=== PATIENT | male | born 1975 | race Caucasian/White ===

== ENCOUNTER 2021-10-26 22:20 | Observation (INO) ==
[2021-10-26 23:03] LABS: Basophils # (auto) 0.01 K/uL (0-0.2); Basophils % (auto) 0.1 %; Eosinophils # (auto) 0.11 K/uL (0-0.5); Eosinophils % (auto) 0.8 %; Hematocrit (blood only) 43.3 % (42-52); Hemoglobin 15.3 g/dL (14.0-18.0); Immature Granulocytes # (auto) 0.02 K/uL (0.00-0.02); Immature Granulocytes % (auto) 0.1 %; Lymphocytes # (auto) 1.88 K/uL (1.2-3.4); Lymphocytes % (auto) 13.9 %; Mean Corpuscular Hemoglobin 30.2 pg (25-34); Mean Corpuscular Hgb Conc 35.3 g/dL (32-36); Mean Corpuscular Volume 85.6 fL (80-100); Mean Platelet Volume 10.6 fL (7.4-10.4); Monocytes # (auto) 0.92 K/uL (0.11-0.59); Monocytes % (auto) 6.8 %; Neutrophils % (auto) 78.3 %; Platelet Count 220 K/uL (130-400); RDW Coefficient of Variation 13.7 % (11.5-14.5); RDW Standard Deviation 42.5 fL (36.4-46.3); Red Blood Count 5.06 M/uL (4.7-6.1); White Blood Count 13.54 K/uL (4.8-10.8)
[2021-10-26 23:24] LABS: Albumin Globulin Ratio 1.3 (0.9-2); Albumin Level 4.1 gm/dl (3.4-5.0); BUN Creatinine Ratio 10.4 (10-20); Bilirubin,Total 0.7 mg/dl (0.2-1.0); Calcium 9.3 mg/dl (8.5-10.1); Creatinine Clr Calc Pharmacy 103.8 ml/min; Est GFR (African American) 97.1 ml/min; Est GFR (Non-African American) 83.8 ml/min; Globulin 3.1 gm/dl (2.5-4.0); Potassium 3.9 mmol/L (3.5-5.1); Total Protein 7.2 gm/dl (6.0-8.3)
[2021-10-26] MEDS ORDERED: SODIUM CHLORIDE 0.9% 1000ML 1,000 ML IV STA ×2 (23:46)
[2021-10-26] MEDS ORDERED: ONDANSETRON INJ 2 MG/ML 2 ML VIAL IV STA (23:46)
[2021-10-26] MEDS ORDERED: HYDROmorphone INJ 0.5 MG/0.5 ML SYR IV STA (23:46)
[2021-10-26] MEDS ORDERED: PIPERACILLIN/TAZOBACTAM 4.5 GM/120 ML BAG IV ONE (23:48)
[2021-10-26] MEDS ORDERED: PIPERACILL/TAZOBAC CONSULT ACTIVE PRN (23:48)
[2021-10-27] MEDS ORDERED: OPTIRAY 320 100ml IV ONE (00:24)
--- NOTE | 2021-10-27 02:00 | Emergency Department Note ---
ED Provider Note CHIEF COMPLAINT: Lower abdominal pain, diverticulitis HISTORY OF PRESENT ILLNESS: This 46-year-old male patient presents to the emergency department complaints of left lower quadrant to suprapubic abdominal discomfort. The patient states he was diagnosed clinically with diverticulitis by his PCP yesterday. He started Cipro and Flagyl just today. Patient began having symptoms 4 days ago. He does have a history of diverticulitis. He stat es he has had a colonoscopy by [facility] in the past. Patient states it has become difficult to walk without significant discomfort. He denies any high fevers, vomiting or blood in the stools. He states he was constipated today and needed to give himself an enema. He does not feel that he has emptied completely yet. REVIEW OF SYSTEMS: A review of systems was performed with positives and p ertinent negatives listed in the history of present illness. 10 systems were reviewed and are otherwise negative. ALLERGIES: see below MEDICATIONS: see below PMH: see below SOCIAL HISTORY: see below DDx: Appendicitis, testicular torsion, infections, diverticulitis, UTI, obstruction, mesenteric ischemia, aortic pathology, inflammatory bowel disease, renal colic, PUD, pancreatitis, biliary pathology, hernia, volvulus, constipation, as well as other pathologies. PHYSICAL EXAM: Vital signs reviewed. General: Well-appearing 46 yo male, in no significant distress. HEENT: No scleral icterus, PERRLA, neck supple. Atraumatic. Cardiovascular: Regular rate and rhythm, no extra sounds. Pulmonary: Clear to auscultation bilaterally, normal work of breathing. Abdomen: Soft, tender to palpation of LLQ and suprapubic region, positive guarding, nondistended, positive bowel sounds. Musculoskeletal: Atraumatic, no peripheral edema. Neurologic: Patient awake alert and oriented x 3 Skin: Warm, dry, no rash EMERGENCY DEPARTMENT COURSE/MDM: Patient was evaluated and appeared to be in no significant distress. IV access was obtained and laboratory work was drawn. Patient was placed on the desk monitor and noted to be in a normal sinus rhythm. Patient was hydrated with normal saline solution. He was medicated with IV Dilaudid and Zofran. Patient was given IV Zosyn 4.5 g due to the peritoneal signs. CT imaging reveals gas is a larger diverticulum with surrounding pericolonic fat stranding however no pneumoperitoneum or abscess. Patient does have a leukocytosis of 13.5. Patient's case was discussed with hospitalist service for admission and further management. Patient and his family were made aware of plan and agreed. Dr. Ortiz of the hospitalist service was consulted for further management. MONITORING: An order for cardiac monitoring was placed and the patient is noted to be in a NSR at 71 beats per minute. RADIOLOGY: Preliminary Findings Only See Final Report For Complete Findings CT ABDOMEN & PELVIS With Contrast: Sigmoid diverticulitis involving a large 2.5 cm diverticulum in the sigmoid colon with surrounding pericolonic fat stranding. Regional gas appears to extend to the margin of the diverticulum and potentially beyond the wall of the diverticulum. However, no distal pneumoperitoneum identified. No abscess. No bowel obstruction. The liver, gallbladder, pancreas, spleen, adrenal glands and kidneys are unremarkable. Bladder is unremarkable. Radiologist: Blayne Cordero MD Study ready at 00:32 and initial results transmitted at 01:58 DISPOSITION:Admit Past Med/Surg History Medical History (Updated 10/27/21 @ 02:46 by Ana M Vanessa MD) COVID-19 virus infection Diverticulosis Hypertension Social History (Updated 10/27/21 @ 02:45 by Ana M Vanessa MD) Smoking Status: Never smoker Preferred Language: Croatian marital status: Feels Safe at Home: Yes Allergies Allergies Allergy/AdvReac Type Severity Reaction Status Date / Time No Known Allergies Allergy Verified 10/27/21 00:26 Home Meds Home Medications Medication Instructions Recorded Confirmed verapamil 120 mg tablet 120 mg PO BID 05/01/21 10/27/21 lisinopril 40 mg tablet 40 mg PO DAILY 10/27/21 10/27/21 Results & Data (ED) Vital Signs Vital Signs - 24 hr 10/26/21 22:33 10/27/21 00:21 Temperature 37.2 C Temperature Source Oral Pulse Rate 71 Respiratory Rate 18 Respiratory Effort / Characteristics Non-Labored Spontaneous Non-Labored Respiratory Depth Normal Normal Respiratory Pattern Regular Blood Pressure 155/92 H Blood Pressure Mean 113 Pulse Oximetry 95 98 Oxygen Delivery Method Room Air Sepsis Recent Fever Within 48 Hours No Sepsis New/Unexplained Change in Mental Status No Sepsis Action Taken by Nursing No Action Required Home Medications Current Medication List: was personally reviewed by me Laboratory Data Attestation: I reviewed the patient's lab results. Result diagrams: 10/26/21 22:46 10/26/21 22:46 Lab Results 10/26/21 10/26/21 10/27/21 Range/Units 22:46 22:46 00:35 WBC 13.54 H (4.8-10.8) K/uL RBC 5.06 (4.7-6.1) M/uL Hgb 15.3 (14.0-18.0) g/dL Hct 43.3 (42-52) % MCV 85.6 (80-100) fL MCH 30.2 (25-34) pg MCHC 35.3 (32-36) g/dL RDW Std Deviation 42.5 (36.4-46.3) fL RDW Coeff of Fahad 13.7 (11.5-14.5) % Plt Count 220 (130-400) K/uL MPV 10.6 H (7.4-10.4) fL Immature Gran % (Auto) 0.1 % Neut % (Auto) 78.3 % Lymph % (Auto) 13.9 % [place] % (Auto) 6.8 % Eos % (Auto) 0.8 % Baso % (Auto) 0.1 % Neut # (Auto) 10.60 H (1.4-6.5) K/uL Lymph # (Auto) 1.88 (1.2-3.4) K/uL [place] # (Auto) 0.92 H (0.11-0.59) K/uL Eos # (Auto) 0.11 (0-0.5) K/uL Baso # (Auto) 0.01 (0-0.2) K/uL Immature Gran # (Auto) 0.02 (0.00-0.02) K/uL Sodium 137 (136-145) mmol/L Potassium 3.9 (3.5-5.1) mmol/L Chloride 102 (98-107) mmol/L Carbon Dioxide 27 (21-32) mmol/L Anion Gap 8 (3-11) BUN 11 (6-23) mg/dl Creatinine 1.06 (0.6-1.4) mg/dl Est Cr Clr Drug Dosing 103.8 ml/min Est GFR ( Amer) 97.1 ml/min Est GFR (Non-Af Amer) 83.8 ml/min BUN/Creatinine Ratio 10.4 (10-20) Glucose 103 H (70-99(Fasting)) mg/dl Calcium 9.3 (8.5-10.1) mg/dl Total Bilirubin 0.7 (0.2-1.0) mg/dl AST 18 (13-39) U/L ALT 18 (7-52) U/L Alkaline Phosphatase 59 (34-104) U/L Total Protein 7.2 (6.0-8.3) gm/dl Albumin 4.1 (3.4-5.0) gm/dl Globulin 3.1 (2.5-4.0) gm/dl Albumin/Globulin Ratio 1.3 (0.9-2) Lipase 16 (11-82) U/L Urine Color Urine Appearance (Clear) Urine pH (4.5-7.5) Ur Specific [place] (1.000-1.030) Urine Protein (Negative) Urine Glucose (UA) (Negative) Urine Ketones (Negative) Urine Blood (Negative) Urine Nitrite (Negative) Urine Bilirubin (Negative) Urine Urobilinogen (Negative) Ur Leukocyte Esterase (Negative) Urine WBC (Auto) (0-5) /hpf Urine RBC (Auto) (0-4) /hpf U Hyaline Cast (Auto) (0-5) /lpf U Epithel Cells (Auto) (0-5) /lpf Urine Bacteria (Auto) (Negative) SARS-CoV-2, RNA, NAAT NEGATIVE (NEGATIVE) 10/27/21 Range/Units 02:10 WBC (4.8-10.8) K/uL RBC (4.7-6.1) M/uL Hgb (14.0-18.0) g/dL Hct (42-52) % MCV (80-100) fL MCH (25-34) pg MCHC (32-36) g/dL RDW Std Deviation (36.4-46.3) fL RDW Coeff of [place] (11.5-14.5) % Plt Count (130-400) K/uL MPV (7.4-10.4) fL Immature Gran % (Auto) % Neut % (Auto) % Lymph % (Auto) % [place] % (Auto) % Eos % (Auto) % Baso % (Auto) % Neut # (Auto) (1.4-6.5) K/uL Lymph # (Auto) (1.2-3.4) K/uL [place] # (Auto) (0.11-0.59) K/uL Eos # (Auto) (0-0.5) K/uL Baso # (Auto) (0-0.2) K/uL Immature Gran # (Auto) (0.00-0.02) K/uL Sodium (136-145) mmol/L Potassium (3.5-5.1) mmol/L Chloride (98-107) mmol/L Carbon Dioxide (21-32) mmol/L Anion Gap (3-11) BUN (6-23) mg/dl Creatinine (0.6-1.4) mg/dl Est Cr Clr Drug Dosing ml/min Est GFR ( Amer) ml/min Est GFR (Non-Af Amer) ml/min BUN/Creatinine Ratio (10-20) Glucose (70-99(Fasting)) mg/dl Calcium (8.5-10.1) mg/dl Total Bilirubin (0.2-1.0) mg/dl AST (13-39) U/L ALT (7-52) U/L Alkaline Phosphatase (34-104) U/L Total Protein (6.0-8.3) gm/dl Albumin (3.4-5.0) gm/dl Globulin (2.5-4.0) gm/dl Albumin/Globulin Ratio (0.9-2) Lipase (11-82) U/L Urine Color Yellow Urine Appearance Clear (Clear) Urine pH 7.0 (4.5-7.5) Ur Specific [place] 1.034 H (1.000-1.030) Urine Protein Negative (Negative) Urine Glucose (UA) Negative (Negative) Urine Ketones Negative (Negative) Urine Blood 1+ H (Negative) Urine Nitrite Negative (Negative) Urine Bilirubin Negative (Negative) Urine Urobilinogen Negative (Negative) Ur Leukocyte Esterase Negative (Negative) Urine WBC (Auto) 0 (0-5) /hpf Urine RBC (Auto) 0-4 (0-4) /hpf U Hyaline Cast (Auto) 0 (0-5) /lpf U Epithel Cells (Auto) 0-5 (0-5) /lpf Urine Bacteria (Auto) Negative (Negative) SARS-CoV-2, RNA, NAAT (NEGATIVE) Administered Medications Sodium Chloride (Nss 1000ml) 1,000 mls @ 125 mls/hr IV .Q8H STA Stop: 10/27/21 07:45 Last Infusion: 10/27/21 01:09 Dose: 125 mls/hr Documented by: [id number] Infusion: 10/26/21 23:59 Dose: 0 mls/hr Documented by: [id number] Admin: 10/26/21 23:59 Dose: 125 mls/hr Documented by: [id number] Discontinued Medications Hydromorphone HCl (Hydromorphone Inj 0.5 Mg/0.5 Ml Syr) 0.5 mg IV NOW STA Stop: 10/26/21 23:47 Last Admin: 10/26/21 23:58 Dose: 0.5 mg Documented by: [id number] Sodium Chloride (Nss 1000ml) 1,000 mls @ 999 mls/hr IV .Q1H1M STA Stop: 10/27/21 00:46 Last Infusion: 10/27/21 01:11 Dose: 0 mls/hr Documented by: [id number] Admin: 10/26/21 23:59 Dose: 999 mls/hr Documented by: [id number] Piperacillin Sod/Tazobactam Sod (Zosyn) 4.5 gm in 120 mls @ 240 mls/hr IV NOW ONE Stop: 10/27/21 00:17 Last Infusion: 10/27/21 01:10 Dose: 0 mls/hr Documented by: [id number] Admin: 10/27/21 00:29 Dose: 240 mls/hr Documented by: [id number] Ioversol (Optiray 320 100ml) 100 ml IV ONCE ONE Stop: 10/27/21 00:25 Last Admin: 10/27/21 00:25 Dose: 93 ml Documented by: [id number] Ondansetron HCl (Ondansetron Inj 2 Mg/Ml 2 Ml Vial) 4 mg IV NOW STA Stop: 10/26/21 23:47 Last Admin: 10/26/21 23:58 Dose: 4 mg Documented by: [id number] Blood Pressure Blood Pressure Findings: Elevated blood pressure Blood Pressure Disposition: further management by hospitalist Discharge Plan Visit Data Chief Complaint: Abdominal Pain Stated Complaint: FEELING SICK, STOMACH PAIN, DIVERTICULITIS ED Provider: Rasheeda,Ana M B Forms Stand Alone Forms: My [facility] Prescriptions Prescriptions: No Action verapamil 120 mg tablet 120 mg PO BID RF: 0 lisinopril 40 mg tablet 40 mg PO DAILY RF: 0 Referrals Referrals: Tyler Roberts MD [Primary Care Provider] -
[2021-10-27 02:33] LABS: Appearance Urine Clear (Clear); Bacteria Urine Automated Negative (Negative); Bilirubin Urine Negative (Negative); Blood Urine 1+ (Negative); Cast Urine Automated 0 /lpf (0-5); Color Urine Yellow; Epithelial Cell Urine Auto 0-5 /lpf (0-5); Glucose Urine UA Negative (Negative); Ketones Urine Negative (Negative); Leukocyte Esterase Urine Negative (Negative); Nitrite Urine Negative (Negative); Protein Urine Negative (Negative); RBC Urine Automated 0-4 /hpf (0-4); Specific Gravity Urine 1.034 (1.000-1.030); Urobilinogen Urine Negative (Negative); WBC Urine Automated 0 /hpf (0-5)
[2021-10-27] MEDS ORDERED: HYDROmorphone INJ 0.5 MG/0.5 ML SYR IV STA (03:00)
--- NOTE | 2021-10-27 03:47 | History & Physical Report ---
Date of Service October 27, 2021 Assessment & Plan (1) Acute diverticulitis: Plan: Has LLQ tenderness with CT a/p revealing Sigmoid diverticulitis involving a large 2.5 cm diverticulum in the sigmoid colon with surrounding pericolonic fat stranding. Regional gas appears to extend to the margin of the diverticulum and potentially beyond the wall of the diverticulum. However, no distal pneumoperitoneum identified. No abscess. No bowel obstruction. Cont with Zosyn for now to help w pain control and tolerating PO. (2) Tobacco use disorder: Plan: chews tobacco, declines nicotine patch (3) HTN (hypertension): Plan: chronic, stable. Cont lisionopril and verapamil per home regimen. (4) DVT prophylaxis: Plan: Lovenox Full code Dispo-to floor. To home when eating well and pain well controlled. Kimberly Ortiz DO [facility] Hospitalist History of Present Illness Chief Complaint: abdominal pain Primary Care Provider: Tyler Roberts MD 46 yo M with a history of diverticulitis presents with acute left lower quadrant pain that began Monday evening. He was doing fine through the weekend but went to see his PCP Monday because he had a feeling it was acute diverticulitis and he wanted to get it treated. He was started on cipro and flagyl and only took1-2 doses before the pain became much worse prompting presentation to the ER. He describes the pain as significant and staying in the LLQ/suprapubic region. No changes in stools but he is more constipated. No blood per rectum. Denies fevers, chills, nausea, vomiting, chest pain SOB or other issues today. He reports not eating much today but thinks he could. Allergies Allergy/AdvReac Type Severity Reaction Status Date / Time No Known Allergies Allergy Verified 10/27/21 00:26 Home Medications Medication Instructions Recorded Confirmed Type verapamil 120 mg tablet 120 mg PO BID 05/01/21 10/27/21 History lisinopril 40 mg tablet 40 mg PO DAILY 10/27/21 10/27/21 History Past Med/Surg History Medical History (Updated 10/27/21 @ 03:47 by Kimberly Ortiz DO) COVID-19 virus infection Diverticulosis Hypertension Tobacco use disorder Surgical History S/P hernia surgery Family History Father Colorectal cancer Social History Smoking Status: Never smoker Do You Dip or Chew Tobacco: Yes; Hx Alcohol Use: No Hx Substance Use: No Preferred Language: Frisian Communication Ability: Effective Chief Quality Officer Required: No Beliefs That Will Affect Care: None marital status: Current Living Situation: Other Current Living Situation Comment: Girlfriend Other Information That Helps Us Care for You: No Feels Safe at Home: Yes Safety Concerns: Feels Safe At This Time Assistive Devices: Glasses Review of Systems Review of Systems: All systems were reviewed and negative except as indicated in HPI above. Physical Exam Physical Exam: CONSTITUTIONAL: WNWD, vitals as above, generally well- appearing, NAD EYES: normal conjunctivae, no scleral icterus ENT: external ear and nose normal NECK: trachea midline RESPIRATORY: clear to auscultation bilaterally, no crackles, rales or wheezes, normal respiratory effort CARDIOVASCULAR: regular rate and rhythm, S1 and 2 heard without murmurs, gallops or rubs, no JVD, no peripheral edema GASTROINTESTINAL: normal bowel sounds, soft,TTP in LLQ, no guarding MUSCULOSKELETAL: strength 5/5 throughout, head is normocephalic and atraumatic, SKIN: warm and dry NEUROLOGIC: CN 2-12 grossly intact, no sensory deficit, normal cognition, normal speech, no tremor, no gross focal deficits. PSYCHIATRIC: alert cooperative and oriented to person, place and time. Results & Data Results & Data ([facility]) Vital Signs (Past 12 Hours) Vital Signs Temp Pulse Pulse Resp BP BP Pulse Ox 10/27/21 02:59 53 L 19 138/90 97 10/27/21 00:21 98 10/26/21 22:33 37.2 C 71 18 155/92 H 95 Laboratory Results Short CBC 10/26/21 Range/Units 22:46 WBC 13.54 H (4.8-10.8) K/uL Hgb 15.3 (14.0-18.0) g/dL Hct 43.3 (42-52) % Plt Count 220 (130-400) K/uL BMP 10/26/21 22:46 Sodium 137 Potassium 3.9 Chloride 102 Carbon Dioxide 27 BUN 11 Creatinine 1.06 Glucose 103 H Calcium 9.3 Liver Function 10/26/21 Range/Units 22:46 Total Bilirubin 0.7 (0.2-1.0) mg/dl AST 18 (13-39) U/L ALT 18 (7-52) U/L Alkaline Phosphatase 59 (34-104) U/L Albumin 4.1 (3.4-5.0) gm/dl Urine 10/27/21 Range/Units 02:10 Urine Color Yellow Urine Appearance Clear (Clear) Urine pH 7.0 (4.5-7.5) Ur Specific [place] 1.034 H (1.000-1.030) Urine Protein Negative (Negative) Urine Glucose (UA) Negative (Negative) Diagnostic Findings Reading/image is unavailable to me. Per ER dr note, CT imaging reveals gas is a larger diverticulum with surrounding pericolonic fat stranding however no pneumoperitoneum or abscess Code Status & VTE Plan VTE Prophylaxis Plan VTE Prophylaxis will be ordered: Yes
[2021-10-27] MEDS ORDERED: oxyCODONE HCL IR 5 MG TAB (IMMEDIATE RELEASE) PO PRN (05:04)
[2021-10-27] MEDS ORDERED: ACETAMINOPHEN 325 MG TAB PO PRN (05:04)
[2021-10-27] MEDS ORDERED: POLYETHYLENE (MIRALAX) 17 GM PACK PO PRN (05:04)
[2021-10-27] MEDS ORDERED: HYDROmorphone INJ 0.5 MG/0.5 ML SYR IV PRN (05:04)
[2021-10-27] MEDS: PIPERACILLIN/TAZOBACTAM 3.375 GM in DEXTROSE 5% 100 ML IV SCH ×2 (05:45→12:25)
--- NOTE | 2021-10-27 07:27 | CT Scan Report ---
ABDOMEN AND PELVIS CT WITH IV CONTRAST CT DOSE: 669.61 mGy.cm HISTORY: Acute nausea with central lower abdominal pain diverticulitis TECHNIQUE: Multiaxial CT images of the abdomen and pelvis were performed following the IV administrat ion of 93 cc of Optiray, A dose lowering technique was utilized adhering to the principles of ALARA. COMPARISON STUDY: Chest radiograph 05/01/2021 FINDINGS: The imaged inferior cardiac chambers are unremarkable. Mild subsegmental bibasilar atelectasis. The s pleen, pancreas, gallbladder, adrenal glands and liver appear unremarkable. There is patency of the h epatic and portal veins. Unremarkable kidneys without hydronephrosis. Subcentimeter hypodense focus o f the inferior pole right kidney is too small to characterize. Unremarkable urinary bladder. The pros lowe is upper limits of normal in size with central coarse calcifications. Small fat filled right ing uinal hernia. Aorta and IVC are unremarkable. No pathologically enlarged lymph nodes identified. No bowel obstruction. There is moderate circumferential wall thickening with mucosal hyperemia center ed within the mid sigmoid colon. There is an acutely plain diverticulum which demonstrates a few punc lowe foci of adjacent extraluminal air. Moderate inflammatory stranding with trace free fluid. No quynh inable fluid collection. There are several tiny adjacent likely reactive lymph nodes. The appendix is mildly dilated at 8 mm however does not appear to be inflamed. There is mild fecal retention. Unrema rkable soft tissues. The bones appear to be intact with mild spondylitic spurring of the spine. IMPRESSION: 1. Acute sigmoid diverticulitis with a few adjacent foci of extra luminal air compatible with micrope rforation. No gross pneumoperitoneum or abscess. 2. No bowel obstruction. 3. The appendix is slightly dilated however is noninflamed. Acute appendicitis is considered unlikely . ACT 112: Negative or not required by law. The above report was generated using voice recognition software. It may contain grammatical, syntax o r spelling errors. Electronically signed by: Roland Cole M.D. 10/27/2021 7:26 AM
[2021-10-27] MEDS: VERAPAMIL HCL 40 MG TAB PO SCH ×2 (07:49→10:03)
[2021-10-27] MEDS ORDERED: ENOXAPARIN INJ 40 MG/0.4 ML SYR SQ SCH (09:00)
[2021-10-27] MEDS ORDERED: lisinopril 40 MG TAB PO SCH (09:00)
--- NOTE | 2021-10-27 12:13 | Hospitalist Progress Note ---
Date of Service October 27, 2021 Assessment & Plan (1) Acute diverticulitis: Plan: Preseneted with Acute diverticulitis say hx of diverticulitis Had colonoscopy about 3 yrs ago was started on cipro and flagyl by PCP but says he took on empty stomach 1 1/2 days and symptoms worsened and came to ER. CT a/p" Sigmoid diverticulitis involving a large 2.5 cm diverticulum in the sigmoid colon with surrounding pericolonic fat stranding. Regional gas appears to extend to the margin of the diverticulum and potentially beyond the wall of the diverticulum. However, no distal pneumoperitoneum identified. No abscess. No bowel obstruction." was started on zosyn Today feeling much better and adamantly wants to go home even though advised to stay today for iv abx Agrees to come back if symptoms comes back Advised to followup with PCP within a week and GI in 2 months Will d/c on cipro and flagyl as prescribed by PCP. Advised for liquids and soft diet until seen by pcp Present on Admission?: Yes (2) Tobacco use disorder: Plan: Advice for cessation Present on Admission?: Yes (3) HTN (hypertension): Plan: Cont lisinopril and verapamil per home regimen. followup with pcp. Present on Admission?: Yes (4) DVT prophylaxis: Plan: Lovenox Admission and Anticipated Discharge Date Admission Date: October 27, 2021 Subjective Patient feeling much better and want to be discharged could not sleep well last night hungry abdomen pain completely resolved no nausea afebrile moved his bowels Says he lives close by and come back if symtoms comes back Review of Systems Review of Systems: All systems reviewed & are unremarkable except as noted in Subjective Physical Exam ENMT: external ear and nose normal, oropharynx normal Neck: trachea midline, no thyromegaly Respiratory: normal respiratory effort, lungs clear to auscultation Cardiovascular: RRR, no murmur, no edema Gastrointestinal (Abdomen): normal bowel sounds, soft, nontender, no hepatosplenomegaly Psychiatric: A+Ox3, euthymic affect Results & Data Results & Data ([facility] [place]) Vital Signs (Past 12 Hours) Vital Signs Temp Pulse Resp BP BP Pulse Ox 10/27/21 07:00 36.6 C 55 L 16 138/84 95 10/27/21 05:00 37.1 C 65 18 131/81 94 10/27/21 04:29 86 14 134/90 92 10/27/21 02:59 53 L 19 138/90 97 10/27/21 00:21 98
--- NOTE | 2021-10-27 17:51 | Discharge Summary ---
Date of Service October 27, 2021 Admission HPI Per Admitting Provider 46 yo M with a history of diverticulitis presents with acute left lower quadrant pain that began Monday evening. He was doing fine through the weekend but went to see his PCP Monday because he had a feeling it was acute diverticulitis and he wanted to get it treated. He was started on cipro and flagyl and only took1- 2 doses before the pain became much worse prompting presentation to the ER. He describes the pain as significant and staying in the LLQ/suprapubic region. No changes in stools but he is more constipated. No blood per rectum. Denies fevers, chills, nausea, vomiting, chest pain SOB or other issues today. He reports not eating much today but thinks he could. Admission Exam Per Admitting Provider CONSTITUTIONAL: WNWD, vitals as above, generally well-appearing, NAD EYES: normal conjunctivae, no scleral icterus ENT: external ear and nose normal NECK: trachea midline RESPIRATORY: clear to auscultation bilaterally, no crackles, rales or wheezes, normal respiratory effort CARDIOVASCULAR: regular rate and rhythm, S1 and 2 heard without murmurs, gallops or rubs, no JVD, no peripheral edema GASTROINTESTINAL: normal bowel sounds, soft,TTP in LLQ, no guarding MUSCULOSKELETAL: strength 5/5 throughout, head is normocephalic and atraumatic, SKIN: warm and dry NEUROLOGIC: CN 2-12 grossly intact, no sensory deficit, normal cognition, normal speech, no tremor, no gross focal deficits. PSYCHIATRIC: alert cooperative and oriented to person, place and time. Principal Diagnosis Acute diverticulitis Discharge Data Allergies Allergy/AdvReac Type Severity Reaction Status Date / Time No Known Allergies Allergy Verified 10/27/21 00:26 Consultations 10/27/21 02:24 ED Decision to Admit Stat Ordered Studies 10/26/21 23:46 CT abd pelvis IV con only Urgent Hospital Course (1) Acute diverticulitis: Preseneted with Acute diverticulitis say hx of diverticulitis Had colonoscopy about 3 yrs ago was started on cipro and flagyl by PCP but says he took on empty stomach 1 1/2 days and symptoms worsened and came to ER. CT a/p" Sigmoid diverticulitis involving a large 2.5 cm diverticulum in the sigmoid colon with surrounding pericolonic fat stranding. Regional gas appears to extend to the margin of the diverticulum and potentially beyond the wall of the diverticulum. However, no distal pneumoperitoneum identified. No abscess. No bowel obstruction." was started on zosyn Today feeling much better and adamantly wants to go home even though advised to stay today for iv abx Agrees to come back if symptoms comes back Advised to followup with PCP within a week and GI in 2 months Will d/c on cipro and flagyl as prescribed by PCP. Advised for liquids and soft diet until seen by pcp (2) Tobacco use disorder: Advice for cessation (3) HTN (hypertension): Cont lisinopril and verapamil per home regimen. followup with pcp. (4) DVT prophylaxis: Lovenox Total Time Total Time Spent Total Time Spent (In Minutes): 35minutes Discharge Plan Discharge Items Patient Disposition: Home - Self-Care Reason For Visit: ABDOMINAL PAIN Discharge Diagnosis: Acute diverticulitis Activity: As commented below Activity Comment: As tolerated. Non-emergency contact: Primary Care Provider Call non-emergency contact if: you have any medication questions, your symptoms worsen and you have a fever Follow-up/Referrals: Tyler Roberts MD [Primary Care Provider] - Diet: Low Fiber Diet Comment: Low fiber soft diet until seen by PCP. Addtl Attending Provider Instructions: Followup with PCP within one week Followup With GI in 2 months Pending Studies at Discharge: No Stand-Alone Forms: My [facility] [employer], Smoking Cessation Medications and DC Order Prescriptions: New ciprofloxacin HCl 500 mg tablet 500 mg PO Q12H Qty: 28 RF: 0 metronidazole 500 mg tablet 500 mg PO Q8H 14 Days Qty: 42 RF: 0 Probiotic 3 billion cell capsule 3,000 mmu cells PO DAILY Qty: 20 RF: 0 Continued verapamil 120 mg tablet 120 mg PO BID RF: 0 lisinopril 40 mg tablet 40 mg PO DAILY RF: 0 Discharge Orders: Discharge Order (Routine); Ordered 10/27/21 Ordered By: Jack Kearney/Other Patient Handouts: Diverticulitis Dc Admission Data Admit Date/Time: 10/27/21 03:36 Attending Provider: Jack Henriquez Admit Provider: Kimberly Ortiz Primary Care Provider: Tyler Roberts Other Providers: Kimberly Ortiz Other Interventions: Discharge Summary Assessment (RN) Last Done: 10/27/21 14:20
== END 2021-10-27 14:58 | disposition home or self-care (01) ==
LOC: ED 22:20 → INTOOBSV 10-27 03:36 → 3N 10-27 03:36